=== PATIENT | male | born 1980 | race American Indian/Alaskan Native ===

== ENCOUNTER 2020-07-10 13:33 | Emergency (ER) | payer OTHER ==
[2020-07-10 14:55] LABS: Basophils % (Auto) 0.7 % (0.0-1.8); Eosinophils # (Auto) 0.3 K/mm3 (0.0-0.4); Eosinophils % (Auto) 5.5 % (0.0-4.3); Hematocrit 44.4 % (35.5-45.6); Hemoglobin 14.8 gm/dl (11.8-15.2); Lymphocytes # (Auto) 1.9 K/mm3 (1.2-5.4); Lymphocytes % (Auto) 39.8 % (13.4-35.0); Mean Corpuscular HGB Conc 33 % (32-34); Mean Corpuscular Volume 85 fl (84-94); Monocytes # (Auto) 0.4 K/mm3 (0.0-0.8); Monocytes % (Auto) 9.4 % (0.0-7.3); Platelet Count 149 K/mm3 (140-440); Red Blood Count 5.22 M/mm3 (3.65-5.03); Red Cell Distribution Width 14.2 % (13.2-15.2)
--- NOTE | 2020-07-10 15:21 | XRay Report ---
CHEST 2 VIEWS INDICATION / CLINICAL INFORMATION: Chest Pain. COMPARISON: None available. FINDINGS: SUPPORT DEVICES: None. HEART / MEDIASTINUM: No significant abnormality. LUNGS / PLEURA: No significant pulmonary or pleural abnormality. No pneumothorax. ADDITIONAL FINDINGS: No significant additional findings. IMPRESSION: No significant abnormality Signer Name: Abraham Sheridan MD FACR Signed: 07/10/2020 3:17 PM Workstation Name: [id number]
[2020-07-10 15:30] LABS: Alanine Aminotransferase 20 units/L (7-56); Albumin 4.7 g/dL (3.9-5); BUN/Creatinine Ratio 17; Blood Urea Nitrogen 17 mg/dL (9-20); Calcium 9.3 mg/dL (8.4-10.2); Hemolysis Index 9
--- NOTE | 2020-07-10 18:07 | Emergency Department Report ---
ED Chest Pain HPI - General Chief Complaint: Chest Pain Stated Complaint: CHEST PAIN/LOW BP Time Seen by Provider: 07/10/20 14:31 Source: patient Mode of arrival: Ambulatory Limitations: No Limitations - History of Present Illness Initial Comments: Patient is a 39-year-old male presents emergency room complaints of left-sided chest pain that began earlier this morning. He states he is not sure how to describe the pain. He denies any radiation of the pain. He denies any nausea, vomiting, diaphoresis, leg swelling, shortness of breath. He states that he is also been having a mild headache and took 2 aspirin this morning with relief of his headache. He denies any vision changes, numbness, weakness. He denies any medical history. No allergies to medicines. He is a never smoker. He denies any recent travel, recent surgery, sick contacts, recent immobilization. He denies any family cardiac history. he states his BP has been elevated in the past and today it was 150/120, he has never been on BP meds. - Related Data Previous Rx's Medication Instructions Recorded Last Taken Type amLODIPine 5 mg PO DAILY #30 tab 07/10/20 Unknown Rx Allergies Allergy/AdvReac Type Severity Reaction Status Date / Time No Known Allergies Allergy Unverified 07/10/20 13:39 Heart Score - HEART Score History: Slightly suspicious EKG: Normal Age: < 45 Risk factors: 1-2 risk factors Troponin: < normal limit HEART Score: 1 ED Review of Systems ROS: Stated complaint: CHEST PAIN/LOW BP Other details as noted in HPI Comment: All other systems reviewed and negative ED Past Medical Hx - Past Medical History Previous Medical History?: No - Surgical History Past Surgical History?: No - Medications Home Medications: Home Medications Medication Instructions Recorded Confirmed Last Taken Type amLODIPine 5 mg PO DAILY #30 tab 07/10/20 Unknown Rx ED Physical Exam - General Limitations: No Limitations General appearance: alert, in no apparent distress - Head Head exam: Present: atraumatic, normocephalic - Eye Eye exam: Present: normal appearance - ENT ENT exam: Present: mucous membranes moist - Respiratory Respiratory exam: Present: normal lung sounds bilaterally. Absent: respiratory distress, wheezes, rales, rhonchi, stridor, chest wall tenderness, accessory muscle use, decreased breath sounds, prolonged expiratory - Cardiovascular Cardiovascular Exam: Present: regular rate, normal rhythm, normal heart sounds. Absent: systolic murmur, diastolic murmur, rubs, gallop - Neurological Exam Neurological exam: Present: alert, oriented X3 - Psychiatric Psychiatric exam: Present: normal affect, normal mood - Skin Skin exam: Present: warm, dry, intact ED Course Vital Signs 07/10/20 07/10/20 07/10/20 13:38 18:15 18:28 Temperature 98.3 F Pulse Rate 80 Respiratory 18 Rate Blood Pressure 173/101 Blood Pressure 176/81 164/105 [Right] O2 Sat by Pulse 98 Oximetry KAMRAN score - Kamran Score Age > 65: (0) No Aspirin use within the Past 7 Days: (1) Yes 3 or more CAD Risk Factors: (0) No 2 or more Angina events in past 24 hrs: (0) No Known CAD with more than 50% Stenosis: (0) No Elevated Cardiac Markers: (0) No ST Deviation Greater than 0.5mm: (0) No KAMRAN Score: 1 ED Medical Decision Making - Lab Data Result diagrams: 07/10/20 14:39 07/10/20 14:39 Labs 07/10/20 07/10/20 07/10/20 14:39 14:39 17:15 WBC 4.8 RBC 5.22 H Hgb 14.8 Hct 44.4 MCV 85 MCH 28 MCHC 33 RDW 14.2 Plt Count 149 Lymph % (Auto) 39.8 H [place] % (Auto) 9.4 H Eos % (Auto) 5.5 H Baso % (Auto) 0.7 Lymph # (Auto) 1.9 [place] # (Auto) 0.4 Eos # (Auto) 0.3 Baso # (Auto) 0.0 Seg Neutrophils % 44.6 Seg Neutrophils # 2.1 Sodium 140 Potassium 3.8 Chloride 103.8 Carbon Dioxide 30 Anion Gap 10 BUN 17 Creatinine 1.0 Estimated GFR > 60 BUN/Creatinine Ratio 17 Glucose 100 Calcium 9.3 Total Bilirubin 1.10 AST 28 ALT 20 Alkaline Phosphatase 27 L Troponin T < 0.010 < 0.010 Total Protein 7.0 Albumin 4.7 Albumin/Globulin Ratio 2.0 Vital Signs 07/10/20 07/10/20 07/10/20 13:38 18:15 18:28 Temperature 98.3 F Pulse Rate 80 Respiratory 18 Rate Blood Pressure 173/101 Blood Pressure 176/81 164/105 [Right] O2 Sat by Pulse 98 Oximetry - Radiology Data Radiology results: report reviewed Ordering Physician: ASHLI ELLIOTT Date of Service: 07/10/20 Procedure(s): XR chest routine 2V Accession Number(s): [id number] cc: ASHLI ELLIOTT Fluoro Time In Minutes: CHEST 2 VIEWS INDICATION / CLINICAL INFORMATION: Chest Pain. COMPARISON: None available. FINDINGS: SUPPORT DEVICES: None. HEART / MEDIASTINUM: No significant abnormality. LUNGS / PLEURA: No significant pulmonary or pleural abnormality. No pneumoth orax. ADDITIONAL FINDINGS: No significant additional findings. IMPRESSION: No significant abnormality Signer Name: Abraham Sheridan MD FACR Signed: 07/10/2020 3:17 PM Workstation Name: [id number] Transcribed By: MS Dictated By: Abraham Sheridan MD Electronically Authenticated By: Abraham Sheridan MD Signed Date/Time: 07/10/201516 DD/ 15 TD/TT: - Medical Decision Making Patient is a 39-year-old male presents emergency room complaints of left-sided chest pain that began earlier this morning. He states he is not sure how to describe the pain. He denies any radiation of the pain. He denies any nausea, vomiting, diaphoresis, leg swelling, shortness of breath. He states that he is also been having a mild headache and took 2 aspirin this morning with relief of his headache. He denies any vision changes, numbness, weakness. He denies any medical history. No allergies to medicines. He is a never smoker. He denies any recent travel, recent surgery, sick contacts, recent immobilization. He denies any family cardiac history. he states his BP has been elevated in the past and today it was 150/120, he has never been on BP meds. Vitals with elevated blood pressure which slightly improved upon repeat, otherwise vitals are stable. No abnormality on physical examination as documented in chart. EKG is within normal limits. Chest x-ray with no acute process. Labs are normal. Troponin is negative x2. Heart score is 1, KAMRAN score is 1, low risk for cardiac event. PERC criteria negative for PE, PE very unlikely. Symptoms could be related to hypertension, patient needs outpatient cardiology follow-up. Patient given prescription for low-dose amlodipine. Advised patient Please take medication as prescribed. Increase your water intake. Decrease your sodium intake. Incorporate 30-60 minutes of daily exercise. Please keep a blood pressure log and take this with your primary care doctor or erp pm. Follow-up with your primary care doctor. Follow-up with a erp pm. Return to emergency room for any worsening symptoms. Critical care attestation.: If time is entered above; I have spent that time in minutes in the direct care of this critically ill patient, excluding procedure time. ED Disposition Clinical Impression: Elevated blood pressure reading Chest pain Qualifiers: Chest pain type: unspecified Qualified Code(s): R07.9 - Chest pain, unspecified Headache Qualifiers: Headache type: unspecified Headache chronicity pattern: acute headache Intractability: not intractable Qualified Code(s): R51.9 - Headache, unspecified Disposition: TO HOME OR SELFCARE Is pt being admited?: No Does the pt Need Aspirin: No Condition: Stable Instructions: Nonspecific Chest Pain, Adult, Low-Sodium Eating Plan, Managing Your Hypertension, Chest Pain (ED) Additional Instructions: Please take medication as prescribed. Increase your water intake. Decrease your sodium intake. Incorporate 30-60 minutes of daily exercise. Please keep a blood pressure log and take this with your primary care doctor or erp pm. Follow-up with your primary care doctor. Follow-up with a erp pm. Return to emergency room for any worsening symptoms. Prescriptions: amLODIPine 5 mg PO DAILY #30 tab Referrals: DENISE ORTEGA MD [Staff Physician] - 3-5 Days CANDIDA PATEL MD [Staff Physician] - 3-5 Days JULY ART MD [Staff Physician] - 3-5 Days ALVIN CROUCH MD [Staff Physician] - 3-5 Days Time of Disposition: 18:16 Print Language: GERMAN
[2020-07-10 18:30] VITALS: BP 164/105
== END 2020-07-10 18:29 | disposition home or self-care (01) ==
LOC: ED 13:33
DX: R03.0 Elevated blood-pressure reading, without diagnosis of hypertension (principal); R51.9 Headache, unspecified; R07.9 Chest pain, unspecified; Z79.899 Other long term (current) drug therapy
CPT/HCPCS: 36415; 71046; 80053; 84484; 85025; 93005